=== PATIENT | male | born 1995 | race Caucasian/White ===

== ENCOUNTER 2016-09-10 20:01 | Emergency (ER) | payer SELFPAY ==
[2016-09-10 21:06] LABS: BASOPHIL 0.3 % (0-2); EOSINOPHIL 1.1 % (0-5); HCT 46.5 % (42.0-52.0); HGB 15.6 g/dl (13.2-18.0); LYMPHOCYTE 11.5 % (15-48); MCH 30.9 pg (25.0-31.0); MCHC 33.5 g/dL (32.0-36.0); MCV 92.1 fL (78.0-100.0); MONOCYTE 5.1 % (0-12); MPV 9.3 fL (6.0-9.5); PLT 289 K/uL (150-400); RBC 5.05 M/uL (4.70-6.00); RDW 14.1 % (11.5-14.0); WBC 10.6 K/uL (4.0-10.5)
[2016-09-10 21:24] LABS: ALBUMIN 4.9 g/dL (3.5-5.0); BILIRUBIN - TOTAL 0.7 mg/dL (0.1-1.0); CREATININE 0.9 mg/dL (0.7-1.2); GLOBULIN (CALCULATION) 2.8 g/dL (2.2-4.2); POTASSIUM 4.4 mmol/L (3.5-5.1); TOTAL PROTEIN 7.7 g/dL (6.4-8.3)
== END 2016-09-10 23:49 | disposition home or self-care (01) ==
LOC: FER 20:01
PROVIDERS: Emergency Medicine
DX: R10.9 Unspecified abdominal pain (principal); R07.89 Other chest pain; R11.2 Nausea with vomiting, unspecified; R06.02 Shortness of breath; Z87.891 Personal history of nicotine dependence
CPT/HCPCS: 36415; 71020; 80053; 84484; 85025; 93005